=== PATIENT | male | born 2000 | race Caucasian/White ===

== ENCOUNTER 2021-02-18 10:24 | Observation (INO) | payer OTHER ==
[~2021-02-18] VITALS: Ht 182.9 cm; Wt 81.4 kg
[2021-02-18] MEDS ORDERED: ISOVUE-370 76% 100ML VIAL As Ordered ONE (15:39)
[2021-02-18 15:44] LABS: BASO % 0.6 % (0.0-1.0); EOS # 0.3 10^3/uL (0.0-0.5); EOS % 4.7 % (0.0-3.0); HEMOGLOBIN 15.6 g/dl (13.5-17.5); LYMPH # 1.9 10^3/uL (1.5-5.0); MEAN CORPUSCULAR HEMOGLOBIN 29.5 pg (27.0-33.0); MEAN CORPUSCULAR HGB CONC 33.9 g/dl (32.0-36.5); MONO # 0.5 10^3/uL (0.0-0.8); MONO % 7.3 % (2.0-8.0); PLATELET COUNT, AUTOMATED 185 10^3/uL (150-450); RED BLOOD COUNT 5.29 10^6/uL (4.30-6.10); WHITE BLOOD COUNT 6.8 10^3/uL (4.0-10.0)
--- NOTE | 2021-02-18 16:03 | REPVR ---
PROCEDURE INFORMATION: Exam: CT Neck With Contrast Exam date and time: 02/18/2021 3:42 PM Age: 20 years old Clinical indication: Mass, lump, or swelling in neck; Right; Additional info: R peritonsillar swelling S/P tosillectomy TECHNIQUE: Imaging protocol: Computed tomography images of the neck with contrast. Radiation optimization: All CT scans at this facility use at least one of these dose optimization techniques: automated exposure control; mA and/or kV adjustment per patient size (includes targeted exams where dose is matched to clinical indication); or iterative reconstruction. Contrast material: ISOVUE 370; Contrast volume: 75 ml; Contrast route: INTRAVENOUS (IV); COMPARISON: No relevant prior studies available. FINDINGS: Nasopharynx: Unremarkable. Oropharynx: There is prominent soft tissue in the right tonsillar fossa with gas tracks anteriorly and posteriorly extending toward the parapharyngeal fat line on axial image 23. There is no evidence of a focal abscess. Hypopharynx: Unremarkable. Larynx: Unremarkable. Normal epiglottis. Retropharyngeal space: Unremarkable. Submandibular/Parotid glands: Normal. Glands are normal in size. Thyroid: The thyroid gland is normal. Lymph nodes: There are numerous prominent but non-pathologic lymph nodes in the neck. There are no nodes of pathologic dimensions. Trachea: Visualized trachea is unremarkable. Lungs: The visualized portions of the lung apices are normal. Bones/joints: Unremarkable. No acute fracture. Soft tissues: See "Oropharynx" finding. IMPRESSION: There is prominent soft tissue in the right tonsillar fossa with gas tracks anteriorly and posteriorly extending toward the parapharyngeal fat line on axial image 23. There is no evidence of a focal abscess. Electronically signed by: Jeffery Michael On 02/18/2021 16:03:20 PM
[2021-02-18 16:05] LABS: MONO REFLEX EBV COMP NEGATIVE (NEGATIVE)
[2021-02-18 16:20] LABS: ERYTHROCYTE SEDIMENTATION RATE 3 mm/hr (0-15)
[2021-02-18 16:32] LABS: RSV AMPLIFICATION NEGATIVE (NEGATIVE)
[2021-02-18] MEDS ORDERED: AMPICILLIN SOD/SULBACTAM SOD 3 GM in D5W MINI-BAG PLUS 100 ML IV ONE (18:25)
[2021-02-18] MEDS ORDERED: dexameTHASONE 20MG/5ML VIAL (J1100 PER 1MG) IV ONE (18:25)
[2021-02-18] MEDS ORDERED: HOME MED LIST COMPLETE! XX SCH (18:35)
[2021-02-18] MEDS ORDERED: ACETAMINOPHEN 325 MG/10.15 ML UDC PO PRN (19:05)
--- NOTE | 2021-02-18 19:09 | HPEPDOC ---
[facility] Medical History & Physical Date of Admission Feb 18, 2021 Date of Service: Feb 18, 2021 Attending Physician: GREGORIA GUZMÁN MD History and Physical CHIEF COMPLAINT: [20 y/o male c/o right sided throat edema, pain x4 days] HISTORY OF PRESENT ILLNESS: [This is a 20 y/o male with no significant pmh who reports to our ED on 02/18 for evaluation of right sided throat pain and edema that began approx 4 days ago. Patient tells me that his symptoms onset about 4 days ago with sore throat and fever that he took otc cold medicine for to good relief. Patient states that despite this, however, he continued to notice increasing pain and swelling of the right side of his throat. Patient presented to his pcp clinic today for evaluation who sent him to our ED for evaluation of potential neck space infection. Patient, at the time of my exam, complains of sore throat, pain with swallowing, malaise, fatigue, cough sometimes productive of green sputum. Patient denies any difficulty swallowing, inability to handle his own secretions, sob, dizziness, lightheadedness, ear pain, headache, vision changes, chest pain, chest tightness, abd pain, n/v/d/c. ] PAST MEDICAL HISTORY: 1. [See HPI PAST SURGICAL HISTORY: 1. [Tonsillectomy]. SOCIAL HISTORY: Tobacco use:[Denies] ETOH: [Denies] Illicit drug use: [Denies] FAMILY HISTORY: Reviewed - none pertinent ALLERGIES: Please see below. REVIEW OF SYSTEMS: CONSTITUTIONAL: [Denies fevers, chills]. HEENT: [See HPI]. CARDIOVASCULAR: [Denies chest pain, palpitations]. RESPIRATORY: [Denies sob, wheezing]. GASTROINTESTINAL: [Denies abd pain, n/v/d/c]. GENITOURINARY: [Denies dysuria]. SKIN: [Denies rash]. MUSCULOSKELETAL: [Denies acute joint/back pain]. NEUROLOGICAL: [Denies syncope, paresthesias]. ENDOCRINE: [Denies hx of DM]. HEMATOLOGIC/LYMPHATIC: [Denies hx of vte]. HOME MEDICATIONS: Please see below. PHYSICAL EXAMINATION: VITAL SIGNS: Please see below. GENERAL APPEARANCE: [This is a 20 y/o male who is alert and oriented to all que stioning. He does not appear to be in any acute distress]. HEENT: [No mass or lesion. EOMI. No scleral icterus. Nares patent. Oral mucosa moist. There is significant left sided pharyngeal edema and injection of both sides of the oropharynx without any noted exudate. The uvula is deviated to the right appear to be somewhat adhesed the edematous area]. CARDIOVASCULAR: [Regular rate, rhythm. No murmurs, rubs, gallops]. LUNGS: [Good air flow b/l. No wheezing, rales, rhonchi]. ABDOMEN: [Soft, non distended]. MUSCULOSKELETAL: [No joint deformity noted]. EXTREMITIES: [No pedal edema appreciated. Pulses intact. No overlying skin changes]. NEUROLOGICAL: [Speech clear. A+Ox3. No focal deficits]. PSYCHIATRIC: [Mood and affect appear appropriate]. LABORATORY DATA: See below. IMAGING: [Neck CT: FINDINGS: Nasopharynx: Unremarkable. Oropharynx: There is prominent soft tissue in the right tonsillar fossa with gas tracks anteriorly and posteriorly extending toward the parapharyngeal fat line on axial image 23. There is no evidence of a focal abscess. Hypopharynx: Unremarkable. Larynx: Unremarkable. Normal epiglottis. Retropharyngeal space: Unremarkable. Submandibular/Parotid glands: Normal. Glands are normal in size. Thyroid: The thyroid gland is normal. Lymph nodes: There are numerous prominent but non-pathologic lymph nodes in the neck. There are no nodes of pathologic dimensions. Trachea: Visualized trachea is unremarkable. Lungs: The visualized portions of the lung apices are normal. Bones/joints: Unremarkable. No acute fracture. Soft tissues: See "Oropharynx" finding. IMPRESSION: There is prominent soft tissue in the right tonsillar fossa with gas tracks anteriorly and posteriorly extending toward the parapharyngeal fat line on axial image 23. There is no evidence of a focal abscess. ] MICROBIOLOGY: Please see below. ASSESSMENT: [This is a 20 y/o male with no significant pmh who reports to our ED on 02/18 for evaluation of right sided throat pain and edema that began approx 4 days ago. Patient presented to his pcp clinic today for evaluation who sent him to our ED for evaluation of potential neck space infection Labwork and vital signs in the ED unremarkable. Imaging performed notable for soft tissue edema with gas tracks in the right tonsillar fossa as stated in imaging section]. . PLAN: 1. [Right sided peritonsillar edema - most likely viral etiology. patient has no sirs criteria, however cannot r/o bacterial infxn - ED provider consulted ENT provider, Dr. Sims, who recommended iv abx and steroids with observation. Assistance greatly appreciated - Will begin ampicillin for empiric abx coverage of neck space infection - Will give decadron 8mg q8h for three doses and reassess - Liquid tylenol for pain/fever - continuous pulse ox, monitor for airway compromise - Patient tells me he can swallow fine, will trial regular diet - Workup performed in the ed grossly negative per etiology thus far. ebv panel pending, however screen was negative - Admit to med surg under obs for tx DVT prophylaxis - mechanical]. Vital Signs Vital Signs Date Time Temp Pulse Resp B/P (MAP) Pulse Ox O2 Delivery O2 Flow Rate FiO2 02/18/21 16:53 97.6 74 135/75 (95) 99 Room Air 02/18/21 10:24 18 Laboratory Data Labs 24H Laboratory Tests 2 02/18/21 14:49: POC Group A Strep Rapid Screen NEGATIVE 02/18/21 15:21: Immature Granulocyte % (Auto) 0.4, Neutrophils (%) (Auto) 59.0, Lymphocytes (%) (Auto) 28.0, Monocytes (%) (Auto) 7.3, Eosinophils (%) (Auto) 4.7H, Basophils (%) (Auto) 0.6, Neutrophils # (Auto) 4.0, Lymphocytes # (Auto) 1.9, Monocytes # (Auto) 0.5, Eosinophils # (Auto) 0.3, Basophils # (Auto) 0.0, Nucleated Red Blood Cells % (auto) 0.0, Erythrocyte Sedimentation Rate 3, C-Reactive Protein, Quantitative 0.40H, Coronavirus (COVID-19)(PCR) NEGATIVE, Monoscreen NEGATIVE, Influenza Type A (RT-PCR) NEGATIVE, Influenza Type B (RT-PCR) NEGATIVE, Respiratory Syncytial Virus (PCR) NEGATIVE 02/18/21 15:31: POC Glucose (Misc Panel) 89, POC Sodium (Misc Panel) 140, POC Potassium (Misc Panel) 3.8, POC Chloride (Misc Panel) 101, POC Total CO2 (Misc Panel) 27.0, POC Blood Urea Nitrogen (Misc Panel 11, POC Ionized Calcium (Misc Panel) 5.3, POC Creatinine (Misc Panel) 0.8, POC Hematocrit (Misc Panel) 48.0 CBC/BMP Laboratory Tests 02/18/21 15:21 Microbiology Microbiology 02/18/21 Group A Streptococcus Screen (ANGEL), Received Pending Home Medications No Active Prescriptions or Reported Meds Allergies Coded Allergies: No Known Allergies (Unverified , 02/18/21) A-FIB/CHADSVASC A-FIB History Current/History of A-Fib/PAF?: No Current PO Anticoag Therapy: No ANU PARKINSON Feb 18, 2021 19:09
[2021-02-18 21:52] VITALS: BP 135/81
[2021-02-18 23:00] VITALS: O2SAT 96
[2021-02-19] MEDS: AMPICILLIN SOD/SULBACTAM SOD 3 GM in D5W MINI-BAG PLUS 100 ML IV SCH ×3 (00:29→13:11)
[2021-02-19] MEDS: dexameTHASONE 20MG/5ML VIAL (J1100 PER 1MG) IV SCH ×2 (03:46→11:23)
[2021-02-19 06:00] VITALS: BP 101/58
[2021-02-19 08:07] LABS: HEMATOCRIT 44.9 % (42.0-52.0); HEMOGLOBIN 15.5 g/dl (13.5-17.5); MEAN CORPUSCULAR HEMOGLOBIN 29.7 pg (27.0-33.0); MEAN CORPUSCULAR HGB CONC 34.5 g/dl (32.0-36.5); PLATELET COUNT, AUTOMATED 201 10^3/uL (150-450); RED BLOOD COUNT 5.22 10^6/uL (4.30-6.10); WHITE BLOOD COUNT 6.2 10^3/uL (4.0-10.0)
[2021-02-19 08:33] LABS: BLOOD UREA NITROGEN 16 MG/DL (7-18); CALCIUM LEVEL 9.4 MG/DL (8.5-10.1); CARBON DIOXIDE LEVEL 27 MEQ/L (21-32); CHLORIDE LEVEL 106 MEQ/L (98-107); CREATININE FOR GFR 0.87 MG/DL (0.70-1.30); GLUCOSE, FASTING 141 MG/DL (70-100); POTASSIUM SERUM 4.3 MEQ/L (3.5-5.1); SODIUM LEVEL 138 MEQ/L (136-145)
[2021-02-19 09:00] VITALS: O2SAT 97
[2021-02-19] MEDS ORDERED: AUGM875T28 PO ×2 (12:19→15:39)
[2021-02-19 14:00] VITALS: BP 141/66
--- NOTE | 2021-02-19 17:54 | DS.PDOC ---
Discharge Summary General Date of Admission Feb 18, 2021 at 19:03 Date of Discharge 02/19/21 Discharge Summary PROCEDURES PERFORMED DURING STAY: [None]. ADMITTING DIAGNOSES: [Right sided peritonsillar edema/tonsillitis DISCHARGE DIAGNOSES: Right sided peritonsillar edema/tonsillitis COMPLICATIONS/CHIEF COMPLAINT: Parapharyngeal Space Mass. HISTORY OF PRESENT ILLNESS:This is a 20 y/o male with no significant pmh who reports to our ED on 02/18 for evaluation of right sided throat pain and edema that began approx 4 days ago. Patient presented to his pcp clinic today for evaluation who sent him to our ED for evaluation of potential neck space infection Labwork and vital signs in the ED unremarkable. Imaging performed notable for soft tissue edema with gas tracks in the right tonsillar fossa as stated in imaging section HOSPITAL COURSE: Patient received treatment with IV Unasyn. In the morning he denied any problem with swallowing, any shortness of breath. Physical exam pertinent for very mild erythema. Dr. Dominguez saw the patient and recommended discharge on the p.o. antibiotics with follow-up with him in 2 weeks DISCHARGE MEDICATIONS: Please see below. ALLERGIES: Please see below. PHYSICAL EXAMINATION ON DISCHARGE: VITAL SIGNS: Please see below. Objective: GENERAL APPEARANCE: NAD HEENT: no scleral icterus, no JVD, EOMI CARDIOVASCULAR: S1S2 LUNGS: Diminished lung sounds bilaterally ABDOMEN: soft & not tender w palpation MUSCULOSKELETAL: no cyanosis, no swelling INTEGUMENT: no generalized pallor NEUROLOGICAL: cranial nerve function from 2-12 intact, follows commands, speech not dysarthric PROGNOSIS: Good ACTIVITY: [As tolerated]. DIET: Regular DISPOSITION: 01 Home, Self-Care. ITEMS TO FOLLOWUP ON ON OUTPATIENT: Follow-up with ENT DISCHARGE CONDITION: [Stable]. TIME SPENT ON DISCHARGE: 20 minutes. Vital Signs/I&Os Vital Signs Date Time Temp Pulse Resp B/P (MAP) Pulse Ox O2 Delivery O2 Flow Rate FiO2 02/19/21 14:00 98.5 95 18 141/66 (91) 96 Room Air I&O- Last 24 Hours up to 6 AM 02/19/21 06:00 Intake Total 700 ml Output Total 0 ml Balance 700 ml Laboratory Data Labs 24H Laboratory Tests 2 02/19/21 07:11: Nucleated Red Blood Cells % (auto) 0.0, Anion Gap 5L, Calcium Level 9.4 CBC/BMP Laboratory Tests 02/19/21 07:11 Microbiology Microbiology 02/18/21 Group A Streptococcus Screen (ANGEL) - Final, Complete Discharge Medications Scheduled Amoxicillin/Potassium Clav (Augmentin 875-125 Tablet) 1 Each Tablet, 1 TAB PO BID Allergies Coded Allergies: No Known Allergies (Unverified , 02/18/21) MG MONROE DO Feb 19, 2021 17:54
[2021-02-20 15:09] LABS: EBV AB TO NUCLEAR ANTIGEN <18.0 U/mL (0.0-17.9); EBV VIRAL CAPSID AG IgM <36.0 U/mL (0.0-35.9)
--- OUTSIDE RECORDS SUMMARY | 2021-03-18 10:52 | CCD | Continuity of Care Document ---
Author Author Les PATTERSON II, PA-C Organization Unknown Address [address] [place] [address] Phone [phone] Care Team Providers Care Prop Maker Name Role Phone Jenae Voss Unavailable Problems Description No Information Available Social History Type Date Description Comments Sex Unknown ETOH Use Denies alcohol use Tobacco Use Start: Unknown Non Smoker Recreational Drug Use Denies Drug Use Allergies and adverse reactions Description No Known Drug Allergies Medications Active Medications SIG Qnty Indications Ordering Provide r Date Amoxicillin/Clavulanate Potassium 875-125mg Tablets Take One Tablet By Mouth Twice A Day Unkn own Immunizations Description No Information Available Vital Signs Date Vital Result Comment 03/03/2021 9:23am Height 72 inches 6'0" Weight 161.00 lb BMI (Body Mass Index) 21.8 kg/m2 [place] Body Weight 178 lb Weight 73.030 kg Weight Percentile 61st Height Percentile 81 % BSA (Body Surface Area) 1.94 m2 Results Description No Information Available Procedures Date Code Description Status 03/03/2021 44882 Office/Outpatient New Low [facility] 30 -44 Minutes Completed Medical Devices Description No Information Available Encounters Type Date Location Provider Dx Diagnosis Office Visit 03/03/2021 9:30a [facility] Marlon Patterson II, PA-C R22.0 Localized swelling, mass and lump, head Assessments Date Code Description Provider 03/03/2021 R22.0 Localized swelling, mass and lum p, head Marlon Patterson II, PA-C Plan of Treatment Future Appointment(s):* 03/19/2021 7:30 am - Marlon Patterson II, PA-C at [facility] 03/03/2021 - Marlon Patterson II, PA-C* R22.0 Localized swelling, mass and lump, head* New Xrays:* CT Neck Soft Tissue W/O Contrast, Scheduled: 03/12/21 * Comments:* Patient with prominent swelling in the right tonsillar fossa with no evidence of infection. He has no B symptoms. He is status post tonsillectomy approximately 18 years ago. Will obtain repeat CT neck to assess and have patient return for review with Dr. Sims * Follow up:* with Dr Sims [address] Functional Status Description No Information Available Mental Status Description No Information Available Referrals Refer to Reason for Referral Status Appt Date Jacob Sims MD [facility] Schedule d 02/26/[address] [place] [id number] [phone] Jacob Sims MD [facility] Closed 02/26/[address] [place] [address] [phone]
--- OUTSIDE RECORDS SUMMARY | 2021-03-18 10:52 | CCD ---
Author Author [facility] Organization [facility] Address Unknown Phone Unavailable Care Team Providers Care Evaluation Analyst Name Role Phone Yesenia II, Marlon PA Unavailable Unavailable Yesenia II, Marlon PA Unavailable Unavailable Yesenia II, Marlon PA Unavailable Unavailable Yesenia II, Marlon PA Unavailable Unavailable Yesenia II, Marlon PA Unavailable Unavailable Yesenia II, Marlon PA Unavailable Unavailable Yesenia II, Marlon PA Unavailable Unavailable Yesenia II, Marlon PA Unavailable Unavailable Yesenia II, Marlon PA Unavailable Unavailable Yesenia II, Marlon PA Unavailable Unavailable Yesenia II, Marlon PA Unavailable Unavailable Yesenia II, Marlon PA Unavailable Unavailable Yesenia II, Marlon PA Unavailable Unavailable Yesenia II, Marlon PA Unavailable Unavailable Yesenia II, Marlon PA Unavailable Unavailable Yesenia II, Marlon PA Unavailable Unavailable Yesenia II, Marlon PA Unavailable Unavailable Yesenia II, Marlon PA Unavailable Unavailable Yesenia II, Marlon PA Unavailable Unavailable Re-disclosure Warning The records that you are about to access may contain information from federally-assisted alcohol or drug abuse programs. If such information is present, then the following federally mandated warning applies: This information has been disclosed to you from records protected by federal confidentiality rules (42 CFR part 2). The federal rules prohibit you from making any further disclosure of this information unless further disclosure is expressly permitted by the written consent of the person to whom it pertains or as otherwise permitted by 42 CFR part 2. A general authorization for the release of medical or other information is NOT sufficient for this purpose. The Federal rules restrict any use of the information to criminally investigate or prosecute any alcohol or drug abuse patient.The records that you are about to access may contain highly sensitive health information, the redisclosure of which is protected by Article 27-F of the [facility] Public Health law. If you continue you may have access to information: Regarding HIV / AIDS; Provided by facilities licensed or operated by the [facility] Office of Mental Health; or Provided by the [facility] Office for People With Developmental Disabilities. If such information is present, then the following [facility] mandated warning applies: This information has been disclosed to you from confidential records which are protected by state law. State law prohibits you from making any further disclosure of this information without the specific written consent of the person to whom it pertains, or as otherwise permitted by law. Any unauthorized further disclosure in violation of state law may result in a fine or detention sentence or both. A general authorization for the release of medical or other information is NOT sufficient authorization for further disc losure. Encounters Encounter Providers Location Date Indications Data Source(s ) Outpatient Attender: Marlon Sims/Luana/Williams/Edwin matias 03/03/2021 08:30:00 AM EST [facility] ([facility] Immunizations Vaccine Date Status Description Data Source(s) COVID-19 VACCINE Moderna 08/26/2020 12:00:00 AM EDT completed [facility] Vaccine Series Complete: YESThis Data wa s Submitted to [facility] [employer]. COVID-19 VACCINE Moderna 07/30/2020 12:00:00 AM EDT completed [facility] Vaccine Series Complete: NOThis Data was Submitted to [facility] [employer]. Medications Medication Brand Name Start Date Product Form Dose Route Admi nistrative Instructions Pharmacy Instructions Status Indications Reaction Description Data Source(s) Amoxicillin 875 MG / Clavulanate 125 MG Oral Tablet 87 5-125 mg AMOXICILLIN/POTASSIUM CLAV 02/19/2021 12:00:00 AM EST tablet 20 TAKE ONE TABLET BY MOUTH TWICE A DAY TAKE ONE TABLET BY MOUTH TWICE A DAY SOLD: 02/19/2021 [facility] Insurance Providers Payer name Policy type / Coverage type Policy ID Covered constitution party ID Covered constitution party's relationship to israel Policy [place] Plan Information [facility] [employer] [id number] Problems, Conditions, and Diagnoses No Information Surgeries/Procedures Procedure Description Date Indications Data Source(s) OFFICE OUTPATIENT NEW 30 MINUTES 03/03/2021 12:00:00 A M EST [facility] ([facility]) Results ID Date Data Source [id number] 02/18/2021 03:21:00 PM EST [facility] Name Value Range Interpretation Code Description Data Ciera rce(s) Supporting Document(s) SARS coronavirus 2 RNA [Presence] in Res piratory specimen by HOLLY with probe detection NEGATIVE [facility] This lab was ordered by [facility] a nd reported by [facility]. Procedure Social History No Information Vital Signs ID Date Data Source UNK Name Value Range Interpretation Code Description Data Source(s) Body height 72 [in_i] 72 [in_i] [facility] ([facility]) 6'0" Body weight 161.00 [lb_av] 161.00 [lb_av] [facility] ([facility]) Body mass index (BMI) [Ratio] 21.8 kg/m2 21.8 k g/m2 [facility] ([facility]) [place] body weight 178 [lb_av] 178 [lb_av] [facility] ([facility]) Body weight 73.030 kg 73.030 kg [facility] ([facility]) Body height [Percentile] 81 % 81 % [facility] ([facility]) Body surface area Derived from formula 1.94 m2 1.94 m2 [facility] ([facility])
--- OUTSIDE RECORDS SUMMARY | 2021-03-18 10:52 | CCD | Continuity of Care Document ---
Author Author Les PATTERSON II, PA-C Organization Unknown Address [address], [address] [place] [address] Phone [phone] Problems Description No Information Available Social History [...] lb BMI (Body Mass Index) 21.8 kg/m2 [place] Body Weight 178 lb Weight 73.030 kg Weight Percentile 61st Height Percentile 81 % BSA (Body Surface Area) 1.94 m2 Results Description No Information Available Procedures Description No Information Available Medical Devices Description No Information Available Encounters Description No Information Available Assessments Date Code Description Provider 03/03/2021 R22.0 Localized swelling, mass and lum p, head Marlon Patterson II, PA-C Plan of Treatment 03/03/2021 - Marlon Patterson II, PA-C* R22.0 Localized swelling, mass and lump, head* New Xrays:* CT Neck Soft Tissue W/O Contrast, Ordered: 03/03/21 * Follow up:* with Dr Sims [address] Functional Status Description No Information Available Mental Status Description No Information Available Referrals Refer to Reason for Referral Status Appt Date Jacob Sims MD [facility] Schedule d 02/26/2021 [address] [place] [address] [phone] Jacob Sims MD [facility] Closed 02/26/[address] [id number] [phone]
== END 2021-02-19 16:05 | disposition home or self-care (01) ==
LOC: M ED 10:24 → M ED INP 10:25 → UNDOADMIN 19:03 → M ED INP 19:03 → ENRESERV 19:48 → M MSPAV 21:54 → M ED INP 21:54 → M MSPAV 21:54 → UNDODISIN 02-19 16:05
PROVIDERS: ADMIT Family Medicine; ATTEND Family Medicine
DX: J03.91 Acute recurrent tonsillitis, unspecified (principal)
CPT/HCPCS: 36415; 70491; 80047; 80048; 85025; 85027; 85652; 86140; 86308; 86664; 86665; 87631; 87880; 96365; 96375; 96376; 99284; J1100; Q9967

== ENCOUNTER → 2021-03-12 | Outpatient (CLI) | payer OTHER ==
[~2021-03-12] MED LIST: AUGM875T28 PO
== END ==
LOC: M RAD 13:18
PROVIDERS: ATTEND Physician Assistant Medical
DX: R22.0 Localized swelling, mass and lump, head (principal)

== ENCOUNTER → 2021-04-22 | Outpatient (CLI) | payer OTHER ==
[~2021-04-22] MED LIST changes: +ISOVUE-370 76% 100ML VIAL As Ordered ONE
== END ==
LOC: M RAD 08:59
PROVIDERS: ATTEND Otolaryngology
DX: R07.0 Pain in throat (principal)
CPT/HCPCS: 70491; Q9967